=== PATIENT | male | born 1975 | race Two or more races ===

== ENCOUNTER 2021-08-18 19:23 | Inpatient (IN) | payer OTHER ==
[2021-08-18] MEDS ORDERED: BACITRACIN 15 GM TUBE TOPICAL OINTMENT TP ONE (21:56)
[2021-08-18] MEDS ORDERED: DICYCLOMINE HCL 10 MG CAPSULE PO PRN (21:57)
[2021-08-18] MEDS ORDERED: NALOXONE HCL 0.4 MG/ML VIAL IM PRN (21:57)
[2021-08-18] MEDS ORDERED: LOPERAMIDE HCL 2 MG CAPSULE PO PRN (21:57)
[2021-08-18] MEDS ORDERED: ACETAMINOPHEN 325 MG TABLET (FP) PO PRN ×2 (21:57)
[2021-08-18] MEDS ORDERED: P-EPHED 60MG/TRIPROLIDI 2.5MG TABLET PO PRN (21:57)
[2021-08-18] MEDS ORDERED: BISMUTH SUBSALICYLATE 524 MG/30 ML PO PRN (21:57)
[2021-08-18] MEDS ORDERED: MAG HYDROX/AL HYDROX/SIMETH 30 ML UNIT-DOSE CUP PO PRN (21:57)
[2021-08-18] MEDS ORDERED: ONDANSETRON *ODT* 4 MG TABLET SL PRN (21:57)
[2021-08-18] MEDS ORDERED: METHOCARBAMOL 500 MG TABLET PO PRN (21:57)
[2021-08-18] MEDS ORDERED: NALOXONE (NARCAN) HCL 4 MG/0.1 ML SPRAY NS PRN (21:57)
[2021-08-18] MEDS ORDERED: MAGNESIUM CITRATE 300 ML BOTTLE PO PRN (21:57)
[2021-08-18] MEDS ORDERED: MAGNESIUM HYDROX 2400MG/30ML ORAL SUSPENSION 30 ML CUP PO PRN (21:57)
[2021-08-18] MEDS ORDERED: MENTHOL/PHENOL 1 EACH UD MM PRN (21:57)
[2021-08-18] MEDS ORDERED: guaiFENesin 200 MG/10 ML 10 ML UNIT-DOSE CUPS PO PRN (21:57)
[2021-08-18 22:43] VITALS: BMI 14.5
[2021-08-19] MEDS: MELATONIN 5 MG TABLETS PO SCH ×2 (03:33→22:05)
[2021-08-19] MEDS: THIAMINE HCL 100 MG TABLET (FP) PO SCH ×2 (03:34→22:05)
[2021-08-19] MEDS: NICOTINE 14 MG/24 HOURS TOPICAL PATCH TD SCH (10:26)
[2021-08-19] MEDS: PRENATAL VITAMINS W/ FOLIC ACID TABLET (FP) PO SCH (10:26)
[2021-08-19 11:38] LABS: HEMATOCRIT 37.7 % (35.4-49); HEMOGLOBIN 12.1 GM/dL (11.7-16.9); MCH 27.9 pg (25.7-33.7); MEAN CELL VOLUME 87.3 fl (80-96); MEAN PLT VOLUME 7.8 fl (7.5-11.1); PLATELET COUNT 346 10^3/uL (134-434); RBC 4.32 M/mm3 (4.00-5.60); RDW 17.3 % (11.9-15.9); WHITE BLOOD COUNT 7.7 K/mm3 (4.0-10.0)
[2021-08-19 12:06] LABS: ALBUMIN 2.9 g/dl (3.4-5.0); BLOOD UREA NITROGEN 16.7 mg/dL (7-18); CALCIUM 8.7 mg/dL (8.5-10.1)
[2021-08-19 12:09] LABS: CREATININE 0.5 mg/dL (0.55-1.3)
[2021-08-19 12:10] LABS: BILIRUBIN,TOTAL 0.9 mg/dL (0.2-1)
[2021-08-19 12:11] LABS: TOT PROT 6.4 g/dl (6.4-8.2)
[2021-08-19] MEDS ORDERED: methaDONE HCL 10 MG TABLET (FOR DETOX USE ONLY) ONE (14:23)
[2021-08-19] MEDS: GABAPENTIN 300 MG CAPSULE PO SCH ×2 (14:28→22:05)
[2021-08-19] MEDS: levETIRAcetam 500 MG TABLET (FP) PO SCH ×2 (14:28→22:05)
[2021-08-19] MEDS: BACITRACIN 0.9 GM PACKET TP SCH ×2 (14:28→22:04)
[2021-08-19] MEDS: cloNIDine HCL 0.1 MG TABLET PO PRN ×2 (16:01→22:06)
[2021-08-19] MEDS: IBUPROFEN 400 MG TABLET (FP) PO PRN (18:12)
[2021-08-19] MEDS: NICOTINE 10 MG CARTRIDGE (INHALER) IH SCH (18:12)
[2021-08-19] MEDS ORDERED: risperiDONE 1 MG TABLET PO SCH (22:00)
[2021-08-19] MEDS ORDERED: QUEtiapine FUMARATE 200 MG TABLET PO SCH (22:00)
[2021-08-19] MEDS: risperiDONE 0.5 MG TABLET PO SCH (22:05)
[2021-08-20] MEDS: cloNIDine HCL 0.1 MG TABLET PO PRN ×4 (02:32→19:59)
[2021-08-20] MEDS: GABAPENTIN 300 MG CAPSULE PO SCH ×3 (06:07→22:17)
[2021-08-20] MEDS: hydrOXYzine PAMOATE 25 MG CAPSULE (FP) PO PRN ×3 (06:07→17:34)
[2021-08-20] MEDS ORDERED: methaDONE HCL 10 MG TABLET (FOR DETOX USE ONLY) PO ONE (10:00)
[2021-08-20] MEDS: BACITRACIN 0.9 GM PACKET TP SCH ×2 (10:04→22:16)
[2021-08-20] MEDS: DULoxetine HCL 20 MG CAPSULE.DR PO SCH (10:04)
[2021-08-20] MEDS: PRENATAL VITAMINS W/ FOLIC ACID TABLET (FP) PO SCH (10:04)
[2021-08-20] MEDS: risperiDONE 0.5 MG TABLET PO SCH ×2 (10:04→22:17)
[2021-08-20] MEDS: levETIRAcetam 500 MG TABLET (FP) PO SCH ×2 (10:04→22:16)
[2021-08-20] MEDS: NICOTINE 10 MG CARTRIDGE (INHALER) IH SCH (10:05)
[2021-08-20] MEDS: NICOTINE 14 MG/24 HOURS TOPICAL PATCH TD SCH (10:11)
[2021-08-20] MEDS: IBUPROFEN 400 MG TABLET (FP) PO PRN ×2 (11:37→17:34)
[2021-08-20] MEDS: NICOTINE POLACRILEX 2 MG GUM BUC PRN ×2 (17:31→22:19)
[2021-08-20] MEDS: NICOTINE 10 MG CARTRIDGE (INHALER) IH PRN (19:59)
[2021-08-20] MEDS: TOLNAFTATE 1% CREAM 15 GM TUBE TP SCH (22:16)
[2021-08-20] MEDS: MELATONIN 5 MG TABLETS PO SCH (22:17)
[2021-08-20] MEDS: THIAMINE HCL 100 MG TABLET (FP) PO SCH (22:17)
[2021-08-21] MEDS: GABAPENTIN 300 MG CAPSULE PO SCH ×3 (05:51→22:06)
[2021-08-21] MEDS: NICOTINE 10 MG CARTRIDGE (INHALER) IH PRN ×4 (05:52→22:08)
[2021-08-21] MEDS ORDERED: methaDONE HCL 10 MG TABLET (FOR DETOX USE ONLY) ONE (09:21)
[2021-08-21] MEDS: NICOTINE 14 MG/24 HOURS TOPICAL PATCH TD SCH (10:20)
[2021-08-21] MEDS: BACITRACIN 0.9 GM PACKET TP SCH ×2 (10:20→22:05)
[2021-08-21] MEDS: PRENATAL VITAMINS W/ FOLIC ACID TABLET (FP) PO SCH (10:21)
[2021-08-21] MEDS: DULoxetine HCL 20 MG CAPSULE.DR PO SCH (10:21)
[2021-08-21] MEDS: levETIRAcetam 500 MG TABLET (FP) PO SCH ×2 (10:21→22:06)
[2021-08-21] MEDS: TOLNAFTATE 1% CREAM 15 GM TUBE TP SCH ×2 (10:21→22:32)
[2021-08-21] MEDS: risperiDONE 0.5 MG TABLET PO SCH ×2 (10:21→22:06)
[2021-08-21] MEDS: cloNIDine HCL 0.1 MG TABLET PO PRN ×2 (15:16→22:07)
[2021-08-21] MEDS: hydrOXYzine PAMOATE 25 MG CAPSULE (FP) PO PRN (17:28)
[2021-08-21] MEDS: THIAMINE HCL 100 MG TABLET (FP) PO SCH (22:06)
[2021-08-21] MEDS: MELATONIN 5 MG TABLETS PO SCH (22:06)
[2021-08-22] MEDS: GABAPENTIN 300 MG CAPSULE PO SCH ×3 (05:50→22:09)
[2021-08-22] MEDS: NICOTINE 10 MG CARTRIDGE (INHALER) IH PRN ×4 (05:51→22:11)
[2021-08-22] MEDS ORDERED: methaDONE HCL 10 MG TABLET (FOR DETOX USE ONLY) PO ONE (10:00)
[2021-08-22] MEDS: levETIRAcetam 500 MG TABLET (FP) PO SCH ×2 (10:16→22:08)
[2021-08-22] MEDS: BACITRACIN 0.9 GM PACKET TP SCH ×2 (10:18→23:23)
[2021-08-22] MEDS: PRENATAL VITAMINS W/ FOLIC ACID TABLET (FP) PO SCH (10:20)
[2021-08-22] MEDS: NICOTINE 14 MG/24 HOURS TOPICAL PATCH TD SCH (10:21)
[2021-08-22] MEDS: risperiDONE 0.5 MG TABLET PO SCH ×2 (10:21→22:08)
[2021-08-22] MEDS: TOLNAFTATE 1% CREAM 15 GM TUBE TP SCH ×2 (10:21→22:09)
[2021-08-22] MEDS: cloNIDine HCL 0.1 MG TABLET PO PRN (13:26)
[2021-08-22] MEDS: hydrOXYzine PAMOATE 25 MG CAPSULE (FP) PO PRN ×2 (14:33→22:10)
[2021-08-22] MEDS: IBUPROFEN 400 MG TABLET (FP) PO PRN (18:20)
[2021-08-22] MEDS: NICOTINE POLACRILEX 2 MG GUM BUC PRN (18:20)
[2021-08-22] MEDS: THIAMINE HCL 100 MG TABLET (FP) PO SCH (22:08)
[2021-08-22] MEDS: MELATONIN 5 MG TABLETS PO SCH (22:08)
[2021-08-23] MEDS: GABAPENTIN 300 MG CAPSULE PO SCH (05:43)
[2021-08-23] MEDS: NICOTINE 10 MG CARTRIDGE (INHALER) IH PRN ×2 (05:47→09:31)
[2021-08-23] MEDS: cloNIDine HCL 0.1 MG TABLET PO PRN (05:47)
[2021-08-23] MEDS: IBUPROFEN 400 MG TABLET (FP) PO PRN (06:59)
[2021-08-23 08:32] VITALS: BP 116/77; PULSE 92; TEMP 97.7
[2021-08-23] MEDS: levETIRAcetam 500 MG TABLET (FP) PO SCH (09:28)
[2021-08-23] MEDS: risperiDONE 0.5 MG TABLET PO SCH (09:31)
[2021-08-23] MEDS: NICOTINE 14 MG/24 HOURS TOPICAL PATCH TD SCH (10:33)
[2021-08-23] MEDS: BACITRACIN 0.9 GM PACKET TP SCH (10:33)
[2021-08-23] MEDS: PRENATAL VITAMINS W/ FOLIC ACID TABLET (FP) PO SCH (10:34)
[2021-08-23] MEDS: TOLNAFTATE 1% CREAM 15 GM TUBE TP SCH (10:34)
== END 2021-08-23 10:00 | disposition home or self-care (01) | DRG 773 ==
LOC: YASAS 19:23 → Y3N 08-19 02:42
PROVIDERS: ADMIT Allergy & Immunology; ATTEND Allergy & Immunology
PROC: HZ2ZZZZ Detoxification Services for Substance Abuse Treatment (ICD-10-PCS; principal; 2021-08-19)
DX: F11.23 Opioid dependence with withdrawal (principal); F10.230 Alcohol dependence with withdrawal, uncomplicated; F14.20 Cocaine dependence, uncomplicated; F12.20 Cannabis dependence, uncomplicated; F17.210 Nicotine dependence, cigarettes, uncomplicated; F25.9 Schizoaffective disorder, unspecified; G40.909 Epilepsy, unspecified, not intractable, without status epilepticus; J45.909 Unspecified asthma, uncomplicated; K21.9 Gastro-esophageal reflux disease without esophagitis; M54.50 Low back pain, unspecified; G89.29 Other chronic pain; Z62.810 Personal history of physical and sexual abuse in childhood; Z86.19 Personal history of other infectious and parasitic diseases
CPT/HCPCS: 36415; 73630-TC-RT-FY; 80053; 85027; 86593; 86780; 87811; C9803-CS; J0735; U0003; U0005

== ENCOUNTER 2021-09-28 15:06 | Inpatient (IN) | payer OTHER ==
[2021-09-28 15:53] VITALS: BMI 18.5
[2021-09-28] MEDS ORDERED: LOPERAMIDE HCL 2 MG CAPSULE PO PRN (17:38)
[2021-09-28] MEDS ORDERED: ACETAMINOPHEN 325 MG TABLET (FP) PO PRN ×2 (17:38)
[2021-09-28] MEDS ORDERED: MAGNESIUM HYDROX 2400MG/30ML ORAL SUSPENSION 30 ML CUP PO PRN (17:38)
[2021-09-28] MEDS ORDERED: MELATONIN 5 MG TABLETS PO PRN (17:38)
[2021-09-28] MEDS ORDERED: MAGNESIUM CITRATE 300 ML BOTTLE PO PRN (17:38)
[2021-09-28] MEDS ORDERED: P-EPHED 60MG/TRIPROLIDI 2.5MG TABLET PO PRN (17:38)
[2021-09-28] MEDS ORDERED: BISMUTH SUBSALICYLATE 524 MG/30 ML PO PRN (17:38)
[2021-09-28] MEDS ORDERED: guaiFENesin 200 MG/10 ML 10 ML UNIT-DOSE CUPS PO PRN (17:38)
[2021-09-28] MEDS ORDERED: DICYCLOMINE HCL 10 MG CAPSULE PO PRN (17:38)
[2021-09-28] MEDS ORDERED: BENZOCAINE/MENTHOL (CHLORASEPTIC ) LOZENGE MM PRN (17:38)
[2021-09-28] MEDS ORDERED: methaDONE HCL 10 MG TABLET (FOR DETOX USE ONLY) PO ONE (17:40)
[2021-09-28] MEDS ORDERED: cloNIDine HCL 0.1 MG TABLET PO PRN (17:40)
[2021-09-28] MEDS ORDERED: diazePAM 5 MG TABLET PO PRN (17:40)
[2021-09-28] MEDS ORDERED: ALBUTEROL SO4 HFA INHALER IH PRN (19:51)
[2021-09-28] MEDS ORDERED: cloNIDine HCL 0.1 MG TABLET ONE (19:54)
[2021-09-28] MEDS ORDERED: methaDONE HCL 10 MG TABLET (FOR DETOX USE ONLY) ONE (19:56)
[2021-09-28] MEDS: CEPHALEXIN MONOHYDRATE 500 MG CAPSULE (UD) PO SCH (22:11)
[2021-09-28] MEDS: GABAPENTIN 300 MG CAPSULE PO SCH (22:11)
[2021-09-28] MEDS: THIAMINE HCL 100 MG TABLET (FP) PO SCH (22:11)
[2021-09-28] MEDS: BACITRACIN 0.9 GM PACKET TP SCH (22:11)
[2021-09-28] MEDS: levETIRAcetam 500 MG TABLET (FP) PO SCH (22:11)
[2021-09-28] MEDS: diazePAM 5 MG TABLET PO SCH (22:12)
[2021-09-28] MEDS: hydrOXYzine PAMOATE 25 MG CAPSULE (FP) PO PRN (22:13)
[2021-09-28] MEDS: NICOTINE 10 MG CARTRIDGE (INHALER) IH PRN (22:14)
[2021-09-29] MEDS: IBUPROFEN 400 MG TABLET (FP) PO PRN (02:51)
[2021-09-29] MEDS: METHOCARBAMOL 500 MG TABLET PO PRN (02:55)
[2021-09-29] MEDS: GABAPENTIN 300 MG CAPSULE PO SCH ×3 (06:40→23:53)
[2021-09-29] MEDS: diazePAM 5 MG TABLET PO SCH ×4 (06:42→23:54)
[2021-09-29] MEDS ORDERED: methaDONE HCL 10 MG TABLET (FOR DETOX USE ONLY) ONE (11:22)
[2021-09-29] MEDS: BACITRACIN 0.9 GM PACKET TP SCH ×2 (11:35→23:53)
[2021-09-29] MEDS: CEPHALEXIN MONOHYDRATE 500 MG CAPSULE (UD) PO SCH ×4 (11:35→23:53)
[2021-09-29] MEDS: PRENATAL VITAMINS W/ FOLIC ACID TABLET (FP) PO SCH (11:35)
[2021-09-29] MEDS: levETIRAcetam 500 MG TABLET (FP) PO SCH ×2 (11:35→23:53)
[2021-09-29] MEDS: NICOTINE 10 MG CARTRIDGE (INHALER) IH PRN ×2 (12:37→19:14)
[2021-09-29 12:43] LABS: HEMATOCRIT 37.7 % (35.4-49); HEMOGLOBIN 12.2 GM/dL (11.7-16.9); MCH 28.7 pg (25.7-33.7); MCHC 32.4 g/dl (32.0-35.9); MEAN CELL VOLUME 88.6 fl (80-96); MEAN PLT VOLUME 7.8 fl (7.5-11.1); PLATELET COUNT 418 10^3/uL (134-434); RBC 4.25 M/mm3 (4.00-5.60)
[2021-09-29 12:50] LABS: ALBUMIN 2.8 g/dl (3.4-5.0); BLOOD UREA NITROGEN 9.6 mg/dL (7-18)
[2021-09-29 12:51] LABS: CREATININE 0.6 mg/dL (0.55-1.3)
[2021-09-29 12:54] LABS: BILIRUBIN,TOTAL 0.3 mg/dL (0.2-1); TOT PROT 7.2 g/dl (6.4-8.2)
[2021-09-29] MEDS: risperiDONE 1 MG TABLET PO SCH (14:10)
[2021-09-29] MEDS: THIAMINE HCL 100 MG TABLET (FP) PO SCH (23:54)
[2021-09-30] MEDS: IBUPROFEN 400 MG TABLET (FP) PO PRN (04:40)
[2021-09-30] MEDS: METHOCARBAMOL 500 MG TABLET PO PRN (04:41)
[2021-09-30] MEDS: NICOTINE 10 MG CARTRIDGE (INHALER) IH PRN ×3 (04:42→22:35)
[2021-09-30] MEDS: GABAPENTIN 300 MG CAPSULE PO SCH ×3 (06:57→22:29)
[2021-09-30] MEDS: diazePAM 5 MG TABLET PO SCH ×3 (06:57→22:29)
[2021-09-30] MEDS ORDERED: methaDONE HCL 10 MG TABLET (FOR DETOX USE ONLY) PO ONE (10:00)
[2021-09-30 10:07] LABS: SARS-CoV-2 NAA Not Detected (Not Detected)
[2021-09-30] MEDS: CEPHALEXIN MONOHYDRATE 500 MG CAPSULE (UD) PO SCH ×4 (10:24→22:28)
[2021-09-30] MEDS: risperiDONE 1 MG TABLET PO SCH (10:24)
[2021-09-30] MEDS: BACITRACIN 0.9 GM PACKET TP SCH ×2 (10:24→22:31)
[2021-09-30] MEDS: levETIRAcetam 500 MG TABLET (FP) PO SCH ×2 (10:25→22:28)
[2021-09-30] MEDS: PRENATAL VITAMINS W/ FOLIC ACID TABLET (FP) PO SCH (10:28)
[2021-09-30] MEDS ORDERED: BENZOCAINE 20 % GEL TUBE MM PRN (15:28)
[2021-09-30] MEDS: MAG HYDROX/AL HYDROX/SIMETH 30 ML UNIT-DOSE CUP PO PRN (17:51)
[2021-09-30] MEDS: THIAMINE HCL 100 MG TABLET (FP) PO SCH (22:29)
[2021-09-30] MEDS: hydrOXYzine PAMOATE 25 MG CAPSULE (FP) PO PRN (22:30)
[2021-10-01] MEDS: NICOTINE 10 MG CARTRIDGE (INHALER) IH PRN ×3 (02:49→22:48)
[2021-10-01] MEDS: IBUPROFEN 400 MG TABLET (FP) PO PRN ×2 (02:49→09:52)
[2021-10-01] MEDS: METHOCARBAMOL 500 MG TABLET PO PRN ×2 (02:50→09:52)
[2021-10-01] MEDS: GABAPENTIN 300 MG CAPSULE PO SCH ×3 (05:43→22:21)
[2021-10-01] MEDS: diazePAM 5 MG TABLET PO SCH ×2 (05:43→18:07)
[2021-10-01] MEDS: hydrOXYzine PAMOATE 25 MG CAPSULE (FP) PO PRN ×2 (05:45→09:51)
[2021-10-01] MEDS ORDERED: methaDONE HCL 10 MG TABLET (FOR DETOX USE ONLY) ONE (09:18)
[2021-10-01] MEDS: risperiDONE 1 MG TABLET PO SCH (09:52)
[2021-10-01] MEDS: CEPHALEXIN MONOHYDRATE 500 MG CAPSULE (UD) PO SCH ×4 (09:52→22:22)
[2021-10-01] MEDS: levETIRAcetam 500 MG TABLET (FP) PO SCH ×2 (09:52→22:21)
[2021-10-01] MEDS: BACITRACIN 0.9 GM PACKET TP SCH ×2 (09:54→22:21)
[2021-10-01] MEDS: PRENATAL VITAMINS W/ FOLIC ACID TABLET (FP) PO SCH (09:54)
[2021-10-01] MEDS: THIAMINE HCL 100 MG TABLET (FP) PO SCH (22:22)
[2021-10-02] MEDS: METHOCARBAMOL 500 MG TABLET PO PRN ×2 (04:17→23:23)
[2021-10-02] MEDS: IBUPROFEN 400 MG TABLET (FP) PO PRN ×2 (04:17→17:47)
[2021-10-02] MEDS: GABAPENTIN 300 MG CAPSULE PO SCH ×3 (05:22→23:22)
[2021-10-02] MEDS ORDERED: diazePAM 5 MG TABLET PO ONE (06:00)
[2021-10-02] MEDS ORDERED: methaDONE HCL 10 MG TABLET (FOR DETOX USE ONLY) PO ONE (10:00)
[2021-10-02] MEDS: risperiDONE 1 MG TABLET PO SCH (10:06)
[2021-10-02] MEDS: BACITRACIN 0.9 GM PACKET TP SCH ×2 (10:06→23:21)
[2021-10-02] MEDS: PRENATAL VITAMINS W/ FOLIC ACID TABLET (FP) PO SCH (10:06)
[2021-10-02] MEDS: CEPHALEXIN MONOHYDRATE 500 MG CAPSULE (UD) PO SCH ×4 (10:07→23:22)
[2021-10-02] MEDS: levETIRAcetam 500 MG TABLET (FP) PO SCH ×2 (10:07→23:23)
[2021-10-02] MEDS: MAG HYDROX/AL HYDROX/SIMETH 30 ML UNIT-DOSE CUP PO PRN ×2 (10:10→18:42)
[2021-10-02] MEDS: ONDANSETRON *ODT* 4 MG TABLET SL PRN ×2 (16:01→20:52)
[2021-10-02] MEDS: NICOTINE 10 MG CARTRIDGE (INHALER) IH PRN (17:48)
[2021-10-02] MEDS: THIAMINE HCL 100 MG TABLET (FP) PO SCH (23:23)
[2021-10-03] MEDS: NICOTINE 10 MG CARTRIDGE (INHALER) IH PRN (03:45)
[2021-10-03] MEDS: METHOCARBAMOL 500 MG TABLET PO PRN (05:42)
[2021-10-03] MEDS: IBUPROFEN 400 MG TABLET (FP) PO PRN (05:42)
[2021-10-03] MEDS: GABAPENTIN 300 MG CAPSULE PO SCH (05:45)
[2021-10-03 07:24] VITALS: BP 121/70; PULSE 91; TEMP 97.1
[2021-10-03] MEDS: BACITRACIN 0.9 GM PACKET TP SCH (09:47)
[2021-10-03] MEDS: PRENATAL VITAMINS W/ FOLIC ACID TABLET (FP) PO SCH (09:47)
[2021-10-03] MEDS: risperiDONE 1 MG TABLET PO SCH (09:47)
[2021-10-03] MEDS: levETIRAcetam 500 MG TABLET (FP) PO SCH (09:47)
[2021-10-03] MEDS: CEPHALEXIN MONOHYDRATE 500 MG CAPSULE (UD) PO SCH (09:47)
== END 2021-10-03 11:05 | disposition home or self-care (01) | DRG 773 ==
LOC: YASAS 15:06 → Y3N 19:38
PROVIDERS: ADMIT Allergy & Immunology; ATTEND Allergy & Immunology
PROC: HZ2ZZZZ Detoxification Services for Substance Abuse Treatment (ICD-10-PCS; principal; 2021-09-28)
DX: F11.23 Opioid dependence with withdrawal (principal); F10.230 Alcohol dependence with withdrawal, uncomplicated; F14.20 Cocaine dependence, uncomplicated; F17.210 Nicotine dependence, cigarettes, uncomplicated; F25.9 Schizoaffective disorder, unspecified; R56.1 Post traumatic seizures; K21.9 Gastro-esophageal reflux disease without esophagitis; L97.511 Non-pressure chronic ulcer of other part of right foot limited to breakdown of skin; Z62.810 Personal history of physical and sexual abuse in childhood; R63.4 Abnormal weight loss; Z68.1 Body mass index [BMI] 19.9 or less, adult; Z99.89 Dependence on other enabling machines and devices; Z89.411 Acquired absence of right great toe; Z89.421 Acquired absence of other right toe(s)
CPT/HCPCS: 36415; 80053; 85027; 86593; 86780; C9803-CS; J0735; J2794; Q0162; U0003; U0005

== ENCOUNTER 2022-08-05 09:32 | Inpatient (IN) | payer OTHER ==
[2022-08-05 11:24] VITALS: BMI 19.8
[2022-08-05] MEDS ORDERED: POLYETHYLENE GLYCOL (HEALTHYLAX) 3350 17 GM PACKET PO PRN (12:09)
[2022-08-05] MEDS ORDERED: LOPERAMIDE HCL 2 MG CAPSULE PO PRN (12:09)
[2022-08-05] MEDS ORDERED: MAG HYDROX/AL HYDROX/SIMETH 30 ML UNIT-DOSE CUP PO PRN (12:09)
[2022-08-05] MEDS ORDERED: hydrOXYzine PAMOATE 25 MG CAPSULE (FP) PO PRN (12:09)
[2022-08-05] MEDS ORDERED: BENZOCAINE/MENTHOL (CHLORASEPTIC ) LOZENGE MM PRN (12:09)
[2022-08-05] MEDS ORDERED: ACETAMINOPHEN 325 MG TABLET (FP) PO PRN (12:09)
[2022-08-05] MEDS ORDERED: guaiFENesin 200 MG/10 ML 10 ML UNIT-DOSE CUPS PO PRN (12:09)
[2022-08-05] MEDS ORDERED: MAGNESIUM HYDROX 2400MG/30ML ORAL SUSPENSION 30 ML CUP PO PRN (12:09)
[2022-08-05] MEDS ORDERED: TUBERCULIN PPD 5 TU/0.1ML VIAL ID ONE (16:22)
[2022-08-05] MEDS: ATORVASTATIN CA 20 MG TABLET (FP) PO SCH ×2 (16:25→21:11)
[2022-08-05] MEDS: PRENATAL VITAMINS W/ FOLIC ACID TABLET (FP) PO SCH (16:25)
[2022-08-05] MEDS: NICOTINE 10 MG CARTRIDGE (INHALER) IH PRN (16:26)
[2022-08-05] MEDS: levETIRAcetam 500 MG TABLET (FP) PO SCH (21:11)
[2022-08-05] MEDS: BUPRENORPHINE/NALOXONE 8 MG/2 MG FILM PACKET SL SCH (21:11)
[2022-08-05] MEDS: SENNOSIDES 8.6MG TABLET (FP) PO SCH (21:11)
[2022-08-05] MEDS: THIAMINE HCL 100 MG TABLET (FP) PO SCH (21:11)
[2022-08-05] MEDS: MELATONIN 5 MG TABLETS PO SCH (21:12)
[2022-08-05] MEDS: MOMETASONE FUROATE 220 MCG/IH INHALER IH SCH (21:12)
[2022-08-05] MEDS ORDERED: PATIENT'S OWN MEDICATION (NON-FORMULARY) (Fluticasone Propionate [Flovent Diskus] 50 MCG B IH SCH (22:00)
[2022-08-06] MEDS: NICOTINE 10 MG CARTRIDGE (INHALER) IH PRN ×5 (00:15→19:02)
[2022-08-06] MEDS: PRENATAL VITAMINS W/ FOLIC ACID TABLET (FP) PO SCH (09:43)
[2022-08-06] MEDS: levETIRAcetam 500 MG TABLET (FP) PO SCH ×2 (09:44→21:13)
[2022-08-06] MEDS: MOMETASONE FUROATE 220 MCG/IH INHALER IH SCH ×2 (09:44→21:44)
[2022-08-06] MEDS: FERROUS SO4 325 MG TABLET (FP) PO SCH (09:44)
[2022-08-06] MEDS: PANTOPRAZOLE 40 MG TABLET PO SCH (09:44)
[2022-08-06] MEDS: BUPRENORPHINE/NALOXONE 8 MG/2 MG FILM PACKET SL SCH ×2 (09:44→21:13)
[2022-08-06] MEDS ORDERED: CITALOPRAM HYDROBROMIDE 10 MG TABLET PO SCH (10:00)
[2022-08-06] MEDS ORDERED: POLYETHYLENE GLYCOL 1 GM PO SCH (10:00)
[2022-08-06 11:12] LABS: HEMATOCRIT 39.1 % (35.4-49); HEMOGLOBIN 12.5 GM/dL (11.7-16.9); MCH 27.6 pg (25.7-33.7); MEAN CELL VOLUME 86.3 fl (80-96); MEAN PLT VOLUME 8.8 fl (7.5-11.1); PLATELET COUNT 274 10^3/uL (134-434); RBC 4.54 M/mm3 (4.00-5.60); RDW 18.5 % (11.9-15.9); WHITE BLOOD COUNT 5.9 K/mm3 (4.0-10.0)
[2022-08-06 11:31] LABS: ALBUMIN 3.2 g/dl (3.4-5.0); CALCIUM 9.1 mg/dL (8.5-10.1)
[2022-08-06 11:32] LABS: BLOOD UREA NITROGEN 9.3 mg/dL (7-18)
[2022-08-06] MEDS ORDERED: QUEtiapine FUMARATE 25 MG TABLET PO PRN (11:33)
[2022-08-06 11:34] LABS: CREATININE 0.5 mg/dL (0.55-1.3)
[2022-08-06 11:36] LABS: BILIRUBIN,TOTAL 0.6 mg/dL (0.2-1); TOT PROT 7.1 g/dl (6.4-8.2)
[2022-08-06 12:10] LABS: SYPHILIS W/ RPR CONF REACTIVE (NONREACTIVE)
[2022-08-06] MEDS ORDERED: LACTULOSE 20 GM/30 ML UDC (FOR ORAL USE ONLY) PO PRN (14:04)
[2022-08-06] MEDS: ATORVASTATIN CA 20 MG TABLET (FP) PO SCH (21:13)
[2022-08-06] MEDS: THIAMINE HCL 100 MG TABLET (FP) PO SCH (21:13)
[2022-08-06] MEDS: SENNOSIDES 8.6MG TABLET (FP) PO SCH (21:14)
[2022-08-06] MEDS: LACTULOSE 20 GM/30 ML UDC (FOR ORAL USE ONLY) PO SCH (21:42)
[2022-08-06] MEDS: risperiDONE 0.5 MG TABLET PO SCH (21:42)
[2022-08-06] MEDS: MELATONIN 5 MG TABLETS PO SCH (21:45)
[2022-08-06 23:27] LABS: PH,URINE 7.5 (5.0-8.0); URINE APPEARANCE CLEAR; URINE BILIRUBIN NEGATIVE (NEGATIVE); URINE COLOR DK YELLOW; URINE GLUCOSE (UA) NEGATIVE (NEGATIVE); URINE KETONE TRACE (NEGATIVE); URINE LEUK ESTERASE NEGATIVE (NEGATIVE); URINE NITRITE NEGATIVE (NEGATIVE); URINE PROTEIN TRACE (NEGATIVE)
[2022-08-07] MEDS: NICOTINE 10 MG CARTRIDGE (INHALER) IH PRN ×5 (04:20→21:20)
[2022-08-07] MEDS: LACTULOSE 20 GM/30 ML UDC (FOR ORAL USE ONLY) PO SCH ×3 (06:47→21:18)
[2022-08-07] MEDS: BUPRENORPHINE/NALOXONE 8 MG/2 MG FILM PACKET SL SCH ×2 (09:40→21:18)
[2022-08-07] MEDS: FERROUS SO4 325 MG TABLET (FP) PO SCH (09:40)
[2022-08-07] MEDS: PRENATAL VITAMINS W/ FOLIC ACID TABLET (FP) PO SCH (09:40)
[2022-08-07] MEDS: MOMETASONE FUROATE 220 MCG/IH INHALER IH SCH ×2 (09:40→21:31)
[2022-08-07] MEDS: levETIRAcetam 500 MG TABLET (FP) PO SCH ×2 (09:41→21:18)
[2022-08-07] MEDS: PANTOPRAZOLE 40 MG TABLET PO SCH (09:41)
[2022-08-07] MEDS: risperiDONE 0.5 MG TABLET PO SCH ×2 (09:43→21:18)
[2022-08-07] MEDS: THIAMINE HCL 100 MG TABLET (FP) PO SCH (21:18)
[2022-08-07] MEDS: ATORVASTATIN CA 20 MG TABLET (FP) PO SCH (21:18)
[2022-08-07] MEDS: MELATONIN 5 MG TABLETS PO SCH (21:18)
[2022-08-07] MEDS: SENNOSIDES 8.6MG TABLET (FP) PO SCH (21:18)
[2022-08-07] MEDS: P-EPHED 60MG/TRIPROLIDI 2.5MG TABLET PO PRN (23:37)
[2022-08-08] MEDS: NICOTINE 10 MG CARTRIDGE (INHALER) IH PRN ×6 (02:22→22:11)
[2022-08-08] MEDS: LACTULOSE 20 GM/30 ML UDC (FOR ORAL USE ONLY) PO SCH ×3 (06:30→21:22)
[2022-08-08] MEDS: PRENATAL VITAMINS W/ FOLIC ACID TABLET (FP) PO SCH (09:40)
[2022-08-08] MEDS: MOMETASONE FUROATE 220 MCG/IH INHALER IH SCH ×2 (09:40→21:23)
[2022-08-08] MEDS: PANTOPRAZOLE 40 MG TABLET PO SCH (09:41)
[2022-08-08] MEDS: levETIRAcetam 500 MG TABLET (FP) PO SCH ×2 (09:41→21:22)
[2022-08-08] MEDS: FERROUS SO4 325 MG TABLET (FP) PO SCH (09:41)
[2022-08-08] MEDS: BUPRENORPHINE/NALOXONE 8 MG/2 MG FILM PACKET SL SCH ×2 (09:41→21:22)
[2022-08-08] MEDS: risperiDONE 0.5 MG TABLET PO SCH ×2 (09:42→21:22)
[2022-08-08] MEDS: MELATONIN 5 MG TABLETS PO SCH (21:21)
[2022-08-08] MEDS: THIAMINE HCL 100 MG TABLET (FP) PO SCH (21:22)
[2022-08-08] MEDS: ATORVASTATIN CA 20 MG TABLET (FP) PO SCH (21:22)
[2022-08-08] MEDS: SENNOSIDES 8.6MG TABLET (FP) PO SCH (21:22)
[2022-08-09] MEDS: NICOTINE 10 MG CARTRIDGE (INHALER) IH PRN ×6 (02:15→21:35)
[2022-08-09] MEDS: LACTULOSE 20 GM/30 ML UDC (FOR ORAL USE ONLY) PO SCH ×3 (06:20→21:29)
[2022-08-09] MEDS: FERROUS SO4 325 MG TABLET (FP) PO SCH (09:38)
[2022-08-09] MEDS: PRENATAL VITAMINS W/ FOLIC ACID TABLET (FP) PO SCH (09:38)
[2022-08-09] MEDS: risperiDONE 0.5 MG TABLET PO SCH ×2 (09:38→21:31)
[2022-08-09] MEDS: levETIRAcetam 500 MG TABLET (FP) PO SCH ×2 (09:38→21:30)
[2022-08-09] MEDS: BUPRENORPHINE/NALOXONE 8 MG/2 MG FILM PACKET SL SCH ×2 (09:38→21:29)
[2022-08-09] MEDS: PANTOPRAZOLE 40 MG TABLET PO SCH (09:38)
[2022-08-09] MEDS: MOMETASONE FUROATE 220 MCG/IH INHALER IH SCH ×2 (09:40→21:31)
[2022-08-09] MEDS: GABAPENTIN 300 MG CAPSULE PO SCH ×2 (13:45→21:30)
[2022-08-09] MEDS: IBUPROFEN 400 MG TABLET (FP) PO PRN (13:46)
[2022-08-09] MEDS: THIAMINE HCL 100 MG TABLET (FP) PO SCH (21:29)
[2022-08-09] MEDS: MELATONIN 5 MG TABLETS PO SCH (21:30)
[2022-08-09] MEDS: ATORVASTATIN CA 20 MG TABLET (FP) PO SCH (21:30)
[2022-08-09] MEDS: SENNOSIDES 8.6MG TABLET (FP) PO SCH (21:31)
[2022-08-10] MEDS: GABAPENTIN 300 MG CAPSULE PO SCH ×3 (06:21→21:12)
[2022-08-10] MEDS: LACTULOSE 20 GM/30 ML UDC (FOR ORAL USE ONLY) PO SCH ×3 (06:21→21:11)
[2022-08-10] MEDS: NICOTINE 10 MG CARTRIDGE (INHALER) IH PRN ×3 (06:22→16:43)
[2022-08-10] MEDS: MOMETASONE FUROATE 220 MCG/IH INHALER IH SCH ×2 (09:40→21:14)
[2022-08-10] MEDS: PRENATAL VITAMINS W/ FOLIC ACID TABLET (FP) PO SCH (09:40)
[2022-08-10] MEDS: levETIRAcetam 500 MG TABLET (FP) PO SCH ×2 (09:41→21:12)
[2022-08-10] MEDS: PANTOPRAZOLE 40 MG TABLET PO SCH (09:41)
[2022-08-10] MEDS: BUPRENORPHINE/NALOXONE 8 MG/2 MG FILM PACKET SL SCH ×2 (09:41→21:13)
[2022-08-10] MEDS: risperiDONE 0.5 MG TABLET PO SCH ×2 (09:41→21:12)
[2022-08-10] MEDS: FERROUS SO4 325 MG TABLET (FP) PO SCH (09:41)
[2022-08-10] MEDS: THIAMINE HCL 100 MG TABLET (FP) PO SCH (21:11)
[2022-08-10] MEDS: MELATONIN 5 MG TABLETS PO SCH (21:11)
[2022-08-10] MEDS: ATORVASTATIN CA 20 MG TABLET (FP) PO SCH (21:12)
[2022-08-10] MEDS: QUEtiapine FUMARATE 25 MG TABLET PO PRN (21:12)
[2022-08-10] MEDS: SENNOSIDES 8.6MG TABLET (FP) PO SCH (21:12)
[2022-08-11] MEDS: NICOTINE 10 MG CARTRIDGE (INHALER) IH PRN ×6 (00:23→21:18)
[2022-08-11] MEDS: P-EPHED 60MG/TRIPROLIDI 2.5MG TABLET PO PRN ×2 (01:08→22:36)
[2022-08-11] MEDS: LACTULOSE 20 GM/30 ML UDC (FOR ORAL USE ONLY) PO SCH ×3 (06:01→21:16)
[2022-08-11] MEDS: IBUPROFEN 400 MG TABLET (FP) PO PRN ×2 (06:01→21:16)
[2022-08-11] MEDS: GABAPENTIN 300 MG CAPSULE PO SCH ×3 (06:02→21:16)
[2022-08-11] MEDS: levETIRAcetam 500 MG TABLET (FP) PO SCH ×2 (09:47→21:16)
[2022-08-11] MEDS: FERROUS SO4 325 MG TABLET (FP) PO SCH (09:47)
[2022-08-11] MEDS: risperiDONE 0.5 MG TABLET PO SCH ×2 (09:47→21:16)
[2022-08-11] MEDS: MOMETASONE FUROATE 220 MCG/IH INHALER IH SCH ×2 (09:47→21:26)
[2022-08-11] MEDS: PANTOPRAZOLE 40 MG TABLET PO SCH (09:47)
[2022-08-11] MEDS: PRENATAL VITAMINS W/ FOLIC ACID TABLET (FP) PO SCH (09:48)
[2022-08-11] MEDS: BUPRENORPHINE/NALOXONE 8 MG/2 MG FILM PACKET SL SCH ×2 (09:48→21:16)
[2022-08-11] MEDS: MELATONIN 5 MG TABLETS PO SCH (21:16)
[2022-08-11] MEDS: ATORVASTATIN CA 20 MG TABLET (FP) PO SCH (21:16)
[2022-08-11] MEDS: SENNOSIDES 8.6MG TABLET (FP) PO SCH (21:16)
[2022-08-11] MEDS: THIAMINE HCL 100 MG TABLET (FP) PO SCH (21:16)
[2022-08-12] MEDS: NICOTINE 10 MG CARTRIDGE (INHALER) IH PRN ×6 (01:34→22:24)
[2022-08-12] MEDS: GABAPENTIN 300 MG CAPSULE PO SCH ×3 (06:12→21:14)
[2022-08-12] MEDS: LACTULOSE 20 GM/30 ML UDC (FOR ORAL USE ONLY) PO SCH ×3 (06:12→21:15)
[2022-08-12] MEDS: BUPRENORPHINE/NALOXONE 8 MG/2 MG FILM PACKET SL SCH ×2 (09:49→21:14)
[2022-08-12] MEDS: PRENATAL VITAMINS W/ FOLIC ACID TABLET (FP) PO SCH (09:49)
[2022-08-12] MEDS: levETIRAcetam 500 MG TABLET (FP) PO SCH ×2 (09:49→21:14)
[2022-08-12] MEDS: FERROUS SO4 325 MG TABLET (FP) PO SCH (09:49)
[2022-08-12] MEDS: MOMETASONE FUROATE 220 MCG/IH INHALER IH SCH ×2 (09:50→21:47)
[2022-08-12] MEDS: PANTOPRAZOLE 40 MG TABLET PO SCH (09:50)
[2022-08-12] MEDS: risperiDONE 0.5 MG TABLET PO SCH ×2 (09:50→21:14)
[2022-08-12] MEDS: VITAMINS A AND D TOPICAL OINTMENT 60 GM TUBE TP SCH (14:38)
[2022-08-12] MEDS: P-EPHED 60MG/TRIPROLIDI 2.5MG TABLET PO PRN ×2 (19:40→21:15)
[2022-08-12] MEDS: ATORVASTATIN CA 20 MG TABLET (FP) PO SCH (21:14)
[2022-08-12] MEDS: THIAMINE HCL 100 MG TABLET (FP) PO SCH (21:14)
[2022-08-12] MEDS: SENNOSIDES 8.6MG TABLET (FP) PO SCH (21:14)
[2022-08-12] MEDS: MELATONIN 5 MG TABLETS PO SCH (21:47)
[2022-08-13] MEDS: P-EPHED 60MG/TRIPROLIDI 2.5MG TABLET PO PRN ×2 (02:31→21:06)
[2022-08-13] MEDS: NICOTINE 10 MG CARTRIDGE (INHALER) IH PRN ×6 (02:32→23:26)
[2022-08-13] MEDS: LACTULOSE 20 GM/30 ML UDC (FOR ORAL USE ONLY) PO SCH ×3 (06:41→21:03)
[2022-08-13] MEDS: GABAPENTIN 300 MG CAPSULE PO SCH ×3 (06:41→21:04)
[2022-08-13] MEDS: PRENATAL VITAMINS W/ FOLIC ACID TABLET (FP) PO SCH (09:47)
[2022-08-13] MEDS: levETIRAcetam 500 MG TABLET (FP) PO SCH ×2 (09:47→21:04)
[2022-08-13] MEDS: BUPRENORPHINE/NALOXONE 8 MG/2 MG FILM PACKET SL SCH ×2 (09:47→21:04)
[2022-08-13] MEDS: PANTOPRAZOLE 40 MG TABLET PO SCH (09:47)
[2022-08-13] MEDS: FERROUS SO4 325 MG TABLET (FP) PO SCH (09:47)
[2022-08-13] MEDS: VITAMINS A AND D TOPICAL OINTMENT 60 GM TUBE TP SCH (09:48)
[2022-08-13] MEDS: risperiDONE 0.5 MG TABLET PO SCH ×2 (09:48→21:05)
[2022-08-13] MEDS: MOMETASONE FUROATE 220 MCG/IH INHALER IH SCH ×2 (09:48→21:03)
[2022-08-13] MEDS: MELATONIN 5 MG TABLETS PO SCH (21:04)
[2022-08-13] MEDS: ATORVASTATIN CA 20 MG TABLET (FP) PO SCH (21:04)
[2022-08-13] MEDS: THIAMINE HCL 100 MG TABLET (FP) PO SCH (21:04)
[2022-08-13] MEDS: SENNOSIDES 8.6MG TABLET (FP) PO SCH (21:04)
[2022-08-14] MEDS: NICOTINE 10 MG CARTRIDGE (INHALER) IH PRN ×5 (03:56→19:28)
[2022-08-14] MEDS: LACTULOSE 20 GM/30 ML UDC (FOR ORAL USE ONLY) PO SCH ×3 (07:08→21:26)
[2022-08-14] MEDS: GABAPENTIN 300 MG CAPSULE PO SCH ×3 (07:08→21:27)
[2022-08-14] MEDS: BUPRENORPHINE/NALOXONE 8 MG/2 MG FILM PACKET SL SCH ×2 (09:53→21:29)
[2022-08-14] MEDS: MOMETASONE FUROATE 220 MCG/IH INHALER IH SCH ×2 (09:53→21:29)
[2022-08-14] MEDS: PANTOPRAZOLE 40 MG TABLET PO SCH (09:53)
[2022-08-14] MEDS: FERROUS SO4 325 MG TABLET (FP) PO SCH (09:53)
[2022-08-14] MEDS: levETIRAcetam 500 MG TABLET (FP) PO SCH ×2 (09:53→21:27)
[2022-08-14] MEDS: PRENATAL VITAMINS W/ FOLIC ACID TABLET (FP) PO SCH (09:53)
[2022-08-14] MEDS: VITAMINS A AND D TOPICAL OINTMENT 60 GM TUBE TP SCH (09:54)
[2022-08-14] MEDS: risperiDONE 0.5 MG TABLET PO SCH ×2 (09:56→21:28)
[2022-08-14] MEDS: SENNOSIDES 8.6MG TABLET (FP) PO SCH (21:27)
[2022-08-14] MEDS: THIAMINE HCL 100 MG TABLET (FP) PO SCH (21:27)
[2022-08-14] MEDS: ATORVASTATIN CA 20 MG TABLET (FP) PO SCH (21:27)
[2022-08-14] MEDS: MELATONIN 5 MG TABLETS PO SCH (21:28)
[2022-08-15] MEDS: NICOTINE 10 MG CARTRIDGE (INHALER) IH PRN ×6 (00:01→21:19)
[2022-08-15] MEDS: P-EPHED 60MG/TRIPROLIDI 2.5MG TABLET PO PRN (01:59)
[2022-08-15] MEDS: GABAPENTIN 300 MG CAPSULE PO SCH ×3 (06:13→21:18)
[2022-08-15] MEDS: LACTULOSE 20 GM/30 ML UDC (FOR ORAL USE ONLY) PO SCH ×3 (06:13→21:18)
[2022-08-15] MEDS: PRENATAL VITAMINS W/ FOLIC ACID TABLET (FP) PO SCH (09:51)
[2022-08-15] MEDS: levETIRAcetam 500 MG TABLET (FP) PO SCH ×2 (09:51→21:18)
[2022-08-15] MEDS: risperiDONE 0.5 MG TABLET PO SCH ×2 (09:51→21:18)
[2022-08-15] MEDS: FERROUS SO4 325 MG TABLET (FP) PO SCH (09:51)
[2022-08-15] MEDS: PANTOPRAZOLE 40 MG TABLET PO SCH (09:51)
[2022-08-15] MEDS: MOMETASONE FUROATE 220 MCG/IH INHALER IH SCH ×2 (09:52→21:19)
[2022-08-15] MEDS: BUPRENORPHINE/NALOXONE 8 MG/2 MG FILM PACKET SL SCH ×2 (09:52→21:17)
[2022-08-15] MEDS: VITAMINS A AND D TOPICAL OINTMENT 60 GM TUBE TP SCH (09:53)
[2022-08-15] MEDS: THIAMINE HCL 100 MG TABLET (FP) PO SCH (21:17)
[2022-08-15] MEDS: SENNOSIDES 8.6MG TABLET (FP) PO SCH (21:18)
[2022-08-15] MEDS: ATORVASTATIN CA 20 MG TABLET (FP) PO SCH (21:18)
[2022-08-15] MEDS: MELATONIN 5 MG TABLETS PO SCH (21:18)
[2022-08-16] MEDS: NICOTINE 10 MG CARTRIDGE (INHALER) IH PRN ×6 (01:19→23:52)
[2022-08-16] MEDS: P-EPHED 60MG/TRIPROLIDI 2.5MG TABLET PO PRN ×2 (01:19→11:28)
[2022-08-16] MEDS: LACTULOSE 20 GM/30 ML UDC (FOR ORAL USE ONLY) PO SCH ×3 (06:50→21:29)
[2022-08-16] MEDS: GABAPENTIN 300 MG CAPSULE PO SCH ×3 (06:50→21:28)
[2022-08-16] MEDS: levETIRAcetam 500 MG TABLET (FP) PO SCH ×2 (09:50→21:29)
[2022-08-16] MEDS: MOMETASONE FUROATE 220 MCG/IH INHALER IH SCH ×2 (09:50→21:34)
[2022-08-16] MEDS: BUPRENORPHINE/NALOXONE 8 MG/2 MG FILM PACKET SL SCH ×2 (09:50→21:29)
[2022-08-16] MEDS: risperiDONE 0.5 MG TABLET PO SCH ×2 (09:51→21:29)
[2022-08-16] MEDS: PANTOPRAZOLE 40 MG TABLET PO SCH (09:51)
[2022-08-16] MEDS: FERROUS SO4 325 MG TABLET (FP) PO SCH (09:51)
[2022-08-16] MEDS: VITAMINS A AND D TOPICAL OINTMENT 60 GM TUBE TP SCH (09:51)
[2022-08-16] MEDS: PRENATAL VITAMINS W/ FOLIC ACID TABLET (FP) PO SCH (09:51)
[2022-08-16] MEDS: MELATONIN 5 MG TABLETS PO SCH (21:28)
[2022-08-16] MEDS: SENNOSIDES 8.6MG TABLET (FP) PO SCH (21:28)
[2022-08-16] MEDS: THIAMINE HCL 100 MG TABLET (FP) PO SCH (21:29)
[2022-08-16] MEDS: ATORVASTATIN CA 20 MG TABLET (FP) PO SCH (21:29)
[2022-08-17] MEDS: NICOTINE 10 MG CARTRIDGE (INHALER) IH PRN ×5 (04:12→21:30)
[2022-08-17] MEDS: GABAPENTIN 300 MG CAPSULE PO SCH ×3 (05:58→21:30)
[2022-08-17] MEDS: LACTULOSE 20 GM/30 ML UDC (FOR ORAL USE ONLY) PO SCH ×3 (05:58→21:31)
[2022-08-17] MEDS: PRENATAL VITAMINS W/ FOLIC ACID TABLET (FP) PO SCH (10:05)
[2022-08-17] MEDS: BUPRENORPHINE/NALOXONE 8 MG/2 MG FILM PACKET SL SCH ×2 (10:06→21:30)
[2022-08-17] MEDS: PANTOPRAZOLE 40 MG TABLET PO SCH (10:06)
[2022-08-17] MEDS: levETIRAcetam 500 MG TABLET (FP) PO SCH ×2 (10:06→21:30)
[2022-08-17] MEDS: FERROUS SO4 325 MG TABLET (FP) PO SCH (10:06)
[2022-08-17] MEDS: MOMETASONE FUROATE 220 MCG/IH INHALER IH SCH ×2 (10:06→21:38)
[2022-08-17] MEDS: VITAMINS A AND D TOPICAL OINTMENT 60 GM TUBE TP SCH (10:07)
[2022-08-17] MEDS: risperiDONE 0.5 MG TABLET PO SCH ×2 (10:07→21:32)
[2022-08-17] MEDS: MELATONIN 5 MG TABLETS PO SCH (21:30)
[2022-08-17] MEDS: THIAMINE HCL 100 MG TABLET (FP) PO SCH (21:30)
[2022-08-17] MEDS: ATORVASTATIN CA 20 MG TABLET (FP) PO SCH (21:30)
[2022-08-17] MEDS: SODIUM CHLORIDE NASAL SPRAY 44 ML BOTTLE NS PRN (21:30)
[2022-08-17] MEDS: SENNOSIDES 8.6MG TABLET (FP) PO SCH (21:32)
[2022-08-18] MEDS: NICOTINE 10 MG CARTRIDGE (INHALER) IH PRN ×6 (01:25→22:34)
[2022-08-18] MEDS: P-EPHED 60MG/TRIPROLIDI 2.5MG TABLET PO PRN (01:28)
[2022-08-18] MEDS: LACTULOSE 20 GM/30 ML UDC (FOR ORAL USE ONLY) PO SCH ×3 (06:29→21:16)
[2022-08-18] MEDS: GABAPENTIN 300 MG CAPSULE PO SCH ×3 (06:29→21:16)
[2022-08-18] MEDS: levETIRAcetam 500 MG TABLET (FP) PO SCH ×2 (10:03→21:16)
[2022-08-18] MEDS: MOMETASONE FUROATE 220 MCG/IH INHALER IH SCH ×2 (10:03→21:45)
[2022-08-18] MEDS: BUPRENORPHINE/NALOXONE 8 MG/2 MG FILM PACKET SL SCH ×2 (10:03→21:16)
[2022-08-18] MEDS: risperiDONE 0.5 MG TABLET PO SCH ×2 (10:04→21:16)
[2022-08-18] MEDS: PRENATAL VITAMINS W/ FOLIC ACID TABLET (FP) PO SCH (10:04)
[2022-08-18] MEDS: FERROUS SO4 325 MG TABLET (FP) PO SCH (10:04)
[2022-08-18] MEDS: PANTOPRAZOLE 40 MG TABLET PO SCH (10:04)
[2022-08-18] MEDS: VITAMINS A AND D TOPICAL OINTMENT 60 GM TUBE TP SCH (10:05)
[2022-08-18] MEDS: MELATONIN 5 MG TABLETS PO SCH (21:15)
[2022-08-18] MEDS: ATORVASTATIN CA 20 MG TABLET (FP) PO SCH (21:16)
[2022-08-18] MEDS: SENNOSIDES 8.6MG TABLET (FP) PO SCH (21:16)
[2022-08-18] MEDS: THIAMINE HCL 100 MG TABLET (FP) PO SCH (21:16)
[2022-08-19] MEDS: NICOTINE 10 MG CARTRIDGE (INHALER) IH PRN ×6 (03:29→23:06)
[2022-08-19] MEDS: P-EPHED 60MG/TRIPROLIDI 2.5MG TABLET PO PRN (03:29)
[2022-08-19] MEDS: GABAPENTIN 300 MG CAPSULE PO SCH ×3 (07:02→21:43)
[2022-08-19] MEDS: LACTULOSE 20 GM/30 ML UDC (FOR ORAL USE ONLY) PO SCH ×3 (07:02→21:41)
[2022-08-19] MEDS: PANTOPRAZOLE 40 MG TABLET PO SCH (10:07)
[2022-08-19] MEDS: FERROUS SO4 325 MG TABLET (FP) PO SCH (10:08)
[2022-08-19] MEDS: MOMETASONE FUROATE 220 MCG/IH INHALER IH SCH ×2 (10:08→21:41)
[2022-08-19] MEDS: BUPRENORPHINE/NALOXONE 8 MG/2 MG FILM PACKET SL SCH ×2 (10:08→21:46)
[2022-08-19] MEDS: PRENATAL VITAMINS W/ FOLIC ACID TABLET (FP) PO SCH (10:08)
[2022-08-19] MEDS: levETIRAcetam 500 MG TABLET (FP) PO SCH ×2 (10:08→21:42)
[2022-08-19] MEDS: risperiDONE 0.5 MG TABLET PO SCH ×2 (10:09→21:42)
[2022-08-19] MEDS: VITAMINS A AND D TOPICAL OINTMENT 60 GM TUBE TP SCH (10:09)
[2022-08-19] MEDS: MELATONIN 5 MG TABLETS PO SCH (21:42)
[2022-08-19] MEDS: SENNOSIDES 8.6MG TABLET (FP) PO SCH (21:42)
[2022-08-19] MEDS: THIAMINE HCL 100 MG TABLET (FP) PO SCH (21:42)
[2022-08-19] MEDS: ATORVASTATIN CA 20 MG TABLET (FP) PO SCH (21:43)
[2022-08-20] MEDS: P-EPHED 60MG/TRIPROLIDI 2.5MG TABLET PO PRN ×2 (02:58→23:30)
[2022-08-20] MEDS: IBUPROFEN 400 MG TABLET (FP) PO PRN ×2 (02:58→23:29)
[2022-08-20] MEDS: NICOTINE 10 MG CARTRIDGE (INHALER) IH PRN ×6 (02:59→23:29)
[2022-08-20] MEDS: LACTULOSE 20 GM/30 ML UDC (FOR ORAL USE ONLY) PO SCH ×3 (06:29→21:12)
[2022-08-20] MEDS: GABAPENTIN 300 MG CAPSULE PO SCH ×3 (06:29→21:12)
[2022-08-20] MEDS: levETIRAcetam 500 MG TABLET (FP) PO SCH ×2 (09:55→21:12)
[2022-08-20] MEDS: FERROUS SO4 325 MG TABLET (FP) PO SCH (09:55)
[2022-08-20] MEDS: PANTOPRAZOLE 40 MG TABLET PO SCH (09:55)
[2022-08-20] MEDS: risperiDONE 0.5 MG TABLET PO SCH ×2 (09:55→21:12)
[2022-08-20] MEDS: PRENATAL VITAMINS W/ FOLIC ACID TABLET (FP) PO SCH (09:56)
[2022-08-20] MEDS: BUPRENORPHINE/NALOXONE 8 MG/2 MG FILM PACKET SL SCH ×2 (09:56→21:12)
[2022-08-20] MEDS: VITAMINS A AND D TOPICAL OINTMENT 60 GM TUBE TP SCH (09:57)
[2022-08-20] MEDS: MOMETASONE FUROATE 220 MCG/IH INHALER IH SCH ×2 (10:02→21:12)
[2022-08-20] MEDS: THIAMINE HCL 100 MG TABLET (FP) PO SCH (21:12)
[2022-08-20] MEDS: ATORVASTATIN CA 20 MG TABLET (FP) PO SCH (21:12)
[2022-08-20] MEDS: MELATONIN 5 MG TABLETS PO SCH (21:12)
[2022-08-20] MEDS: SENNOSIDES 8.6MG TABLET (FP) PO SCH (21:12)
[2022-08-21] MEDS: NICOTINE 10 MG CARTRIDGE (INHALER) IH PRN ×6 (03:06→23:18)
[2022-08-21] MEDS: LACTULOSE 20 GM/30 ML UDC (FOR ORAL USE ONLY) PO SCH ×3 (06:03→21:22)
[2022-08-21] MEDS: GABAPENTIN 300 MG CAPSULE PO SCH ×3 (06:03→21:22)
[2022-08-21] MEDS: MOMETASONE FUROATE 220 MCG/IH INHALER IH SCH ×2 (10:07→21:24)
[2022-08-21] MEDS: PANTOPRAZOLE 40 MG TABLET PO SCH (10:07)
[2022-08-21] MEDS: BUPRENORPHINE/NALOXONE 8 MG/2 MG FILM PACKET SL SCH ×2 (10:07→21:22)
[2022-08-21] MEDS: risperiDONE 0.5 MG TABLET PO SCH ×2 (10:07→21:22)
[2022-08-21] MEDS: levETIRAcetam 500 MG TABLET (FP) PO SCH ×2 (10:07→21:22)
[2022-08-21] MEDS: PRENATAL VITAMINS W/ FOLIC ACID TABLET (FP) PO SCH (10:07)
[2022-08-21] MEDS: FERROUS SO4 325 MG TABLET (FP) PO SCH (10:07)
[2022-08-21] MEDS: VITAMINS A AND D TOPICAL OINTMENT 60 GM TUBE TP SCH (10:08)
[2022-08-21] MEDS: P-EPHED 60MG/TRIPROLIDI 2.5MG TABLET PO PRN (19:13)
[2022-08-21] MEDS: SENNOSIDES 8.6MG TABLET (FP) PO SCH (21:22)
[2022-08-21] MEDS: THIAMINE HCL 100 MG TABLET (FP) PO SCH (21:22)
[2022-08-21] MEDS: ATORVASTATIN CA 20 MG TABLET (FP) PO SCH (21:22)
[2022-08-21] MEDS: MELATONIN 5 MG TABLETS PO SCH (21:22)
[2022-08-22] MEDS: P-EPHED 60MG/TRIPROLIDI 2.5MG TABLET PO PRN (02:02)
[2022-08-22] MEDS: NICOTINE 10 MG CARTRIDGE (INHALER) IH PRN ×5 (02:38→21:45)
[2022-08-22] MEDS: GABAPENTIN 300 MG CAPSULE PO SCH ×3 (06:59→21:44)
[2022-08-22] MEDS: LACTULOSE 20 GM/30 ML UDC (FOR ORAL USE ONLY) PO SCH ×3 (06:59→21:45)
[2022-08-22] MEDS: PRENATAL VITAMINS W/ FOLIC ACID TABLET (FP) PO SCH (09:48)
[2022-08-22] MEDS: FERROUS SO4 325 MG TABLET (FP) PO SCH (09:48)
[2022-08-22] MEDS: PANTOPRAZOLE 40 MG TABLET PO SCH (09:48)
[2022-08-22] MEDS: levETIRAcetam 500 MG TABLET (FP) PO SCH ×2 (09:48→21:44)
[2022-08-22] MEDS: BUPRENORPHINE/NALOXONE 8 MG/2 MG FILM PACKET SL SCH ×2 (09:49→21:44)
[2022-08-22] MEDS: risperiDONE 0.5 MG TABLET PO SCH ×2 (09:49→22:18)
[2022-08-22] MEDS: MOMETASONE FUROATE 220 MCG/IH INHALER IH SCH ×2 (09:49→21:46)
[2022-08-22] MEDS: VITAMINS A AND D TOPICAL OINTMENT 60 GM TUBE TP SCH (09:51)
[2022-08-22] MEDS: SODIUM CHLORIDE NASAL SPRAY 44 ML BOTTLE NS PRN (13:03)
[2022-08-22] MEDS: ATORVASTATIN CA 20 MG TABLET (FP) PO SCH (21:44)
[2022-08-22] MEDS: SENNOSIDES 8.6MG TABLET (FP) PO SCH (21:44)
[2022-08-22] MEDS: THIAMINE HCL 100 MG TABLET (FP) PO SCH (21:44)
[2022-08-22] MEDS: MELATONIN 5 MG TABLETS PO SCH (21:46)
[2022-08-23] MEDS: NICOTINE 10 MG CARTRIDGE (INHALER) IH PRN ×5 (02:25→22:38)
[2022-08-23] MEDS: SODIUM CHLORIDE NASAL SPRAY 44 ML BOTTLE NS PRN (04:16)
[2022-08-23] MEDS: LACTULOSE 20 GM/30 ML UDC (FOR ORAL USE ONLY) PO SCH ×3 (06:27→21:19)
[2022-08-23] MEDS: GABAPENTIN 300 MG CAPSULE PO SCH ×3 (06:27→21:20)
[2022-08-23] MEDS ORDERED: PSEUDOEPHEDRINE HCL 30 MG TABLET PO PRN (08:03)
[2022-08-23] MEDS: PRENATAL VITAMINS W/ FOLIC ACID TABLET (FP) PO SCH (09:47)
[2022-08-23] MEDS: PANTOPRAZOLE 40 MG TABLET PO SCH (09:48)
[2022-08-23] MEDS: levETIRAcetam 500 MG TABLET (FP) PO SCH ×2 (09:48→21:20)
[2022-08-23] MEDS: FERROUS SO4 325 MG TABLET (FP) PO SCH (09:48)
[2022-08-23] MEDS: BUPRENORPHINE/NALOXONE 8 MG/2 MG FILM PACKET SL SCH ×2 (09:50→21:21)
[2022-08-23] MEDS: VITAMINS A AND D TOPICAL OINTMENT 60 GM TUBE TP SCH (09:51)
[2022-08-23] MEDS: risperiDONE 0.5 MG TABLET PO SCH ×2 (09:51→21:20)
[2022-08-23] MEDS: MOMETASONE FUROATE 220 MCG/IH INHALER IH SCH ×2 (09:51→21:21)
[2022-08-23] MEDS: THIAMINE HCL 100 MG TABLET (FP) PO SCH (21:19)
[2022-08-23] MEDS: MELATONIN 5 MG TABLETS PO SCH (21:19)
[2022-08-23] MEDS: SENNOSIDES 8.6MG TABLET (FP) PO SCH (21:20)
[2022-08-23] MEDS: ATORVASTATIN CA 20 MG TABLET (FP) PO SCH (21:20)
[2022-08-24] MEDS: P-EPHED 60MG/TRIPROLIDI 2.5MG TABLET PO PRN (02:19)
[2022-08-24] MEDS: NICOTINE 10 MG CARTRIDGE (INHALER) IH PRN ×6 (02:19→22:29)
[2022-08-24] MEDS: LACTULOSE 20 GM/30 ML UDC (FOR ORAL USE ONLY) PO SCH ×3 (06:22→21:16)
[2022-08-24] MEDS: GABAPENTIN 300 MG CAPSULE PO SCH ×3 (06:22→21:16)
[2022-08-24] MEDS: levETIRAcetam 500 MG TABLET (FP) PO SCH ×2 (09:42→21:15)
[2022-08-24] MEDS: FERROUS SO4 325 MG TABLET (FP) PO SCH (09:42)
[2022-08-24] MEDS: PANTOPRAZOLE 40 MG TABLET PO SCH (09:42)
[2022-08-24] MEDS: PRENATAL VITAMINS W/ FOLIC ACID TABLET (FP) PO SCH (09:42)
[2022-08-24] MEDS: MOMETASONE FUROATE 220 MCG/IH INHALER IH SCH ×2 (09:42→21:16)
[2022-08-24] MEDS: risperiDONE 0.5 MG TABLET PO SCH ×2 (09:42→21:15)
[2022-08-24] MEDS: BUPRENORPHINE/NALOXONE 8 MG/2 MG FILM PACKET SL SCH ×2 (09:43→21:15)
[2022-08-24] MEDS: VITAMINS A AND D TOPICAL OINTMENT 60 GM TUBE TP SCH (09:43)
[2022-08-24] MEDS: SODIUM CHLORIDE NASAL SPRAY 44 ML BOTTLE NS PRN (21:15)
[2022-08-24] MEDS: MELATONIN 5 MG TABLETS PO SCH (21:15)
[2022-08-24] MEDS: THIAMINE HCL 100 MG TABLET (FP) PO SCH (21:16)
[2022-08-24] MEDS: SENNOSIDES 8.6MG TABLET (FP) PO SCH (21:16)
[2022-08-24] MEDS: ATORVASTATIN CA 20 MG TABLET (FP) PO SCH (21:16)
[2022-08-25] MEDS: NICOTINE 10 MG CARTRIDGE (INHALER) IH PRN ×6 (01:49→22:28)
[2022-08-25] MEDS: LACTULOSE 20 GM/30 ML UDC (FOR ORAL USE ONLY) PO SCH ×3 (06:06→21:23)
[2022-08-25] MEDS: GABAPENTIN 300 MG CAPSULE PO SCH ×3 (06:06→21:24)
[2022-08-25] MEDS: PRENATAL VITAMINS W/ FOLIC ACID TABLET (FP) PO SCH (09:43)
[2022-08-25] MEDS: FERROUS SO4 325 MG TABLET (FP) PO SCH (09:43)
[2022-08-25] MEDS: BUPRENORPHINE/NALOXONE 8 MG/2 MG FILM PACKET SL SCH ×2 (09:44→21:26)
[2022-08-25] MEDS: risperiDONE 0.5 MG TABLET PO SCH ×2 (09:44→21:24)
[2022-08-25] MEDS: levETIRAcetam 500 MG TABLET (FP) PO SCH ×2 (09:44→21:24)
[2022-08-25] MEDS: PANTOPRAZOLE 40 MG TABLET PO SCH (09:44)
[2022-08-25] MEDS: MOMETASONE FUROATE 220 MCG/IH INHALER IH SCH ×2 (09:45→21:47)
[2022-08-25] MEDS: VITAMINS A AND D TOPICAL OINTMENT 60 GM TUBE TP SCH (10:04)
[2022-08-25] MEDS: THIAMINE HCL 100 MG TABLET (FP) PO SCH (21:23)
[2022-08-25] MEDS: MELATONIN 5 MG TABLETS PO SCH (21:23)
[2022-08-25] MEDS: SENNOSIDES 8.6MG TABLET (FP) PO SCH (21:23)
[2022-08-25] MEDS: ATORVASTATIN CA 20 MG TABLET (FP) PO SCH (21:24)
[2022-08-25] MEDS: P-EPHED 60MG/TRIPROLIDI 2.5MG TABLET PO PRN (22:44)
[2022-08-26] MEDS: NICOTINE 10 MG CARTRIDGE (INHALER) IH PRN ×5 (02:39→21:13)
[2022-08-26] MEDS: GABAPENTIN 300 MG CAPSULE PO SCH ×3 (06:04→21:10)
[2022-08-26] MEDS: LACTULOSE 20 GM/30 ML UDC (FOR ORAL USE ONLY) PO SCH ×3 (06:04→21:11)
[2022-08-26] MEDS: FERROUS SO4 325 MG TABLET (FP) PO SCH (09:43)
[2022-08-26] MEDS: PRENATAL VITAMINS W/ FOLIC ACID TABLET (FP) PO SCH (09:43)
[2022-08-26] MEDS: PANTOPRAZOLE 40 MG TABLET PO SCH (09:43)
[2022-08-26] MEDS: MOMETASONE FUROATE 220 MCG/IH INHALER IH SCH ×2 (09:44→21:11)
[2022-08-26] MEDS: levETIRAcetam 500 MG TABLET (FP) PO SCH ×2 (09:44→21:10)
[2022-08-26] MEDS: risperiDONE 0.5 MG TABLET PO SCH ×2 (09:44→21:10)
[2022-08-26] MEDS: BUPRENORPHINE/NALOXONE 8 MG/2 MG FILM PACKET SL SCH ×2 (09:44→22:11)
[2022-08-26] MEDS: VITAMINS A AND D TOPICAL OINTMENT 60 GM TUBE TP SCH (10:52)
[2022-08-26] MEDS: THIAMINE HCL 100 MG TABLET (FP) PO SCH (21:10)
[2022-08-26] MEDS: ATORVASTATIN CA 20 MG TABLET (FP) PO SCH (21:10)
[2022-08-26] MEDS: SENNOSIDES 8.6MG TABLET (FP) PO SCH (21:10)
[2022-08-26] MEDS: MELATONIN 5 MG TABLETS PO SCH (21:11)
[2022-08-26] MEDS: SODIUM CHLORIDE NASAL SPRAY 44 ML BOTTLE NS PRN (23:07)
[2022-08-27] MEDS: NICOTINE 10 MG CARTRIDGE (INHALER) IH PRN ×6 (01:03→21:54)
[2022-08-27] MEDS: LACTULOSE 20 GM/30 ML UDC (FOR ORAL USE ONLY) PO SCH ×3 (06:09→21:53)
[2022-08-27] MEDS: GABAPENTIN 300 MG CAPSULE PO SCH ×3 (06:09→21:55)
[2022-08-27] MEDS: PRENATAL VITAMINS W/ FOLIC ACID TABLET (FP) PO SCH (09:44)
[2022-08-27] MEDS: PANTOPRAZOLE 40 MG TABLET PO SCH (09:44)
[2022-08-27] MEDS: levETIRAcetam 500 MG TABLET (FP) PO SCH ×2 (09:44→21:50)
[2022-08-27] MEDS: BUPRENORPHINE/NALOXONE 8 MG/2 MG FILM PACKET SL SCH ×2 (09:44→21:53)
[2022-08-27] MEDS: FERROUS SO4 325 MG TABLET (FP) PO SCH (09:44)
[2022-08-27] MEDS: MOMETASONE FUROATE 220 MCG/IH INHALER IH SCH ×2 (09:45→21:55)
[2022-08-27] MEDS: risperiDONE 0.5 MG TABLET PO SCH ×2 (09:45→21:55)
[2022-08-27] MEDS: VITAMINS A AND D TOPICAL OINTMENT 60 GM TUBE TP SCH (09:46)
[2022-08-27] MEDS: IBUPROFEN 400 MG TABLET (FP) PO PRN (14:29)
[2022-08-27] MEDS: THIAMINE HCL 100 MG TABLET (FP) PO SCH (21:50)
[2022-08-27] MEDS: ATORVASTATIN CA 20 MG TABLET (FP) PO SCH (21:50)
[2022-08-27] MEDS: SENNOSIDES 8.6MG TABLET (FP) PO SCH (21:50)
[2022-08-27] MEDS: MELATONIN 5 MG TABLETS PO SCH (22:10)
[2022-08-27] MEDS: SODIUM CHLORIDE NASAL SPRAY 44 ML BOTTLE NS PRN (23:37)
[2022-08-28] MEDS: NICOTINE 10 MG CARTRIDGE (INHALER) IH PRN ×6 (02:29→22:03)
[2022-08-28] MEDS: QUEtiapine FUMARATE 25 MG TABLET PO PRN ×2 (02:31→21:23)
[2022-08-28] MEDS: GABAPENTIN 300 MG CAPSULE PO SCH ×3 (06:03→21:23)
[2022-08-28] MEDS: LACTULOSE 20 GM/30 ML UDC (FOR ORAL USE ONLY) PO SCH ×3 (06:03→21:22)
[2022-08-28] MEDS: levETIRAcetam 500 MG TABLET (FP) PO SCH ×2 (09:44→21:23)
[2022-08-28] MEDS: PRENATAL VITAMINS W/ FOLIC ACID TABLET (FP) PO SCH (09:44)
[2022-08-28] MEDS: FERROUS SO4 325 MG TABLET (FP) PO SCH (09:44)
[2022-08-28] MEDS: BUPRENORPHINE/NALOXONE 8 MG/2 MG FILM PACKET SL SCH ×2 (09:44→21:22)
[2022-08-28] MEDS: PANTOPRAZOLE 40 MG TABLET PO SCH (09:44)
[2022-08-28] MEDS: risperiDONE 0.5 MG TABLET PO SCH ×2 (09:45→21:23)
[2022-08-28] MEDS: MOMETASONE FUROATE 220 MCG/IH INHALER IH SCH ×2 (09:45→21:23)
[2022-08-28] MEDS: VITAMINS A AND D TOPICAL OINTMENT 60 GM TUBE TP SCH (09:45)
[2022-08-28] MEDS: SODIUM CHLORIDE NASAL SPRAY 44 ML BOTTLE NS PRN (21:22)
[2022-08-28] MEDS: ATORVASTATIN CA 20 MG TABLET (FP) PO SCH (21:23)
[2022-08-28] MEDS: THIAMINE HCL 100 MG TABLET (FP) PO SCH (21:23)
[2022-08-28] MEDS: MELATONIN 5 MG TABLETS PO SCH (21:23)
[2022-08-28] MEDS: SENNOSIDES 8.6MG TABLET (FP) PO SCH (21:23)
[2022-08-29] MEDS: LACTULOSE 20 GM/30 ML UDC (FOR ORAL USE ONLY) PO SCH ×3 (06:11→21:47)
[2022-08-29] MEDS: GABAPENTIN 300 MG CAPSULE PO SCH ×3 (06:11→21:47)
[2022-08-29] MEDS: NICOTINE 10 MG CARTRIDGE (INHALER) IH PRN ×5 (06:12→21:50)
[2022-08-29] MEDS: risperiDONE 0.5 MG TABLET PO SCH ×2 (10:09→21:49)
[2022-08-29] MEDS: FERROUS SO4 325 MG TABLET (FP) PO SCH (10:09)
[2022-08-29] MEDS: levETIRAcetam 500 MG TABLET (FP) PO SCH ×2 (10:09→21:47)
[2022-08-29] MEDS: PRENATAL VITAMINS W/ FOLIC ACID TABLET (FP) PO SCH (10:09)
[2022-08-29] MEDS: PANTOPRAZOLE 40 MG TABLET PO SCH (10:09)
[2022-08-29] MEDS: BUPRENORPHINE/NALOXONE 8 MG/2 MG FILM PACKET SL SCH ×2 (10:10→21:50)
[2022-08-29] MEDS: MOMETASONE FUROATE 220 MCG/IH INHALER IH SCH ×2 (10:10→21:49)
[2022-08-29] MEDS: VITAMINS A AND D TOPICAL OINTMENT 60 GM TUBE TP SCH (10:11)
[2022-08-29] MEDS: ATORVASTATIN CA 20 MG TABLET (FP) PO SCH (21:47)
[2022-08-29] MEDS: QUEtiapine FUMARATE 25 MG TABLET PO PRN (21:47)
[2022-08-29] MEDS: THIAMINE HCL 100 MG TABLET (FP) PO SCH (21:47)
[2022-08-29] MEDS: SENNOSIDES 8.6MG TABLET (FP) PO SCH (21:47)
[2022-08-29] MEDS: SODIUM CHLORIDE NASAL SPRAY 44 ML BOTTLE NS PRN (21:48)
[2022-08-29] MEDS: MELATONIN 5 MG TABLETS PO SCH (21:48)
[2022-08-30] MEDS: SODIUM CHLORIDE NASAL SPRAY 44 ML BOTTLE NS PRN ×2 (02:05→23:26)
[2022-08-30] MEDS: NICOTINE 10 MG CARTRIDGE (INHALER) IH PRN ×6 (02:05→23:09)
[2022-08-30] MEDS: LACTULOSE 20 GM/30 ML UDC (FOR ORAL USE ONLY) PO SCH ×3 (06:05→21:13)
[2022-08-30] MEDS: GABAPENTIN 300 MG CAPSULE PO SCH ×3 (06:05→21:13)
[2022-08-30] MEDS: levETIRAcetam 500 MG TABLET (FP) PO SCH ×2 (09:56→21:13)
[2022-08-30] MEDS: BUPRENORPHINE/NALOXONE 8 MG/2 MG FILM PACKET SL SCH ×2 (09:57→21:16)
[2022-08-30] MEDS: FERROUS SO4 325 MG TABLET (FP) PO SCH (09:57)
[2022-08-30] MEDS: PANTOPRAZOLE 40 MG TABLET PO SCH (09:57)
[2022-08-30] MEDS: PRENATAL VITAMINS W/ FOLIC ACID TABLET (FP) PO SCH (09:57)
[2022-08-30] MEDS: MOMETASONE FUROATE 220 MCG/IH INHALER IH SCH ×2 (09:58→21:32)
[2022-08-30] MEDS: risperiDONE 0.5 MG TABLET PO SCH ×2 (09:58→21:13)
[2022-08-30] MEDS: VITAMINS A AND D TOPICAL OINTMENT 60 GM TUBE TP SCH (10:05)
[2022-08-30] MEDS: ATORVASTATIN CA 20 MG TABLET (FP) PO SCH (21:13)
[2022-08-30] MEDS: MELATONIN 5 MG TABLETS PO SCH (21:13)
[2022-08-30] MEDS: SENNOSIDES 8.6MG TABLET (FP) PO SCH (21:14)
[2022-08-30] MEDS: THIAMINE HCL 100 MG TABLET (FP) PO SCH (21:14)
[2022-08-31] MEDS: P-EPHED 60MG/TRIPROLIDI 2.5MG TABLET PO PRN (01:20)
[2022-08-31] MEDS: NICOTINE 10 MG CARTRIDGE (INHALER) IH PRN ×5 (03:17→22:15)
[2022-08-31] MEDS: GABAPENTIN 300 MG CAPSULE PO SCH ×3 (06:10→21:20)
[2022-08-31] MEDS: LACTULOSE 20 GM/30 ML UDC (FOR ORAL USE ONLY) PO SCH ×3 (06:10→21:19)
[2022-08-31 07:03] VITALS: RESP 16
[2022-08-31] MEDS: PRENATAL VITAMINS W/ FOLIC ACID TABLET (FP) PO SCH (09:48)
[2022-08-31] MEDS: PANTOPRAZOLE 40 MG TABLET PO SCH (09:49)
[2022-08-31] MEDS: levETIRAcetam 500 MG TABLET (FP) PO SCH ×2 (09:49→21:20)
[2022-08-31] MEDS: FERROUS SO4 325 MG TABLET (FP) PO SCH (09:49)
[2022-08-31] MEDS: BUPRENORPHINE/NALOXONE 8 MG/2 MG FILM PACKET SL SCH ×2 (09:49→21:19)
[2022-08-31] MEDS: MOMETASONE FUROATE 220 MCG/IH INHALER IH SCH ×2 (09:49→21:20)
[2022-08-31] MEDS: risperiDONE 0.5 MG TABLET PO SCH ×2 (09:50→21:21)
[2022-08-31] MEDS: VITAMINS A AND D TOPICAL OINTMENT 60 GM TUBE TP SCH (09:50)
[2022-08-31] MEDS ORDERED: PSEUDOEPHEDRINE HCL 30 MG TABLET PO PRN (11:38)
[2022-08-31] MEDS: ATORVASTATIN CA 20 MG TABLET (FP) PO SCH (21:20)
[2022-08-31] MEDS: SENNOSIDES 8.6MG TABLET (FP) PO SCH (21:20)
[2022-08-31] MEDS: THIAMINE HCL 100 MG TABLET (FP) PO SCH (21:20)
[2022-08-31] MEDS: MELATONIN 5 MG TABLETS PO SCH (21:20)
[2022-09-01] MEDS: NICOTINE 10 MG CARTRIDGE (INHALER) IH PRN ×6 (02:18→23:13)
[2022-09-01] MEDS: LACTULOSE 20 GM/30 ML UDC (FOR ORAL USE ONLY) PO SCH ×3 (06:09→21:14)
[2022-09-01] MEDS: GABAPENTIN 300 MG CAPSULE PO SCH ×3 (06:09→21:15)
[2022-09-01] MEDS: PANTOPRAZOLE 40 MG TABLET PO SCH (09:43)
[2022-09-01] MEDS: PRENATAL VITAMINS W/ FOLIC ACID TABLET (FP) PO SCH (09:43)
[2022-09-01] MEDS: BUPRENORPHINE/NALOXONE 8 MG/2 MG FILM PACKET SL SCH ×2 (09:43→21:14)
[2022-09-01] MEDS: FERROUS SO4 325 MG TABLET (FP) PO SCH (09:43)
[2022-09-01] MEDS: levETIRAcetam 500 MG TABLET (FP) PO SCH ×2 (09:43→21:15)
[2022-09-01] MEDS: MOMETASONE FUROATE 220 MCG/IH INHALER IH SCH ×2 (09:44→21:14)
[2022-09-01] MEDS: risperiDONE 0.5 MG TABLET PO SCH ×2 (09:44→22:33)
[2022-09-01] MEDS: VITAMINS A AND D TOPICAL OINTMENT 60 GM TUBE TP SCH (09:44)
[2022-09-01] MEDS: QUEtiapine FUMARATE 25 MG TABLET PO PRN (21:15)
[2022-09-01] MEDS: ATORVASTATIN CA 20 MG TABLET (FP) PO SCH (21:15)
[2022-09-01] MEDS: THIAMINE HCL 100 MG TABLET (FP) PO SCH (21:15)
[2022-09-01] MEDS: SENNOSIDES 8.6MG TABLET (FP) PO SCH (21:15)
[2022-09-01] MEDS: MELATONIN 5 MG TABLETS PO SCH (22:33)
[2022-09-02] MEDS: NICOTINE 10 MG CARTRIDGE (INHALER) IH PRN ×3 (02:00→10:33)
[2022-09-02] MEDS: GABAPENTIN 300 MG CAPSULE PO SCH (06:10)
[2022-09-02] MEDS: LACTULOSE 20 GM/30 ML UDC (FOR ORAL USE ONLY) PO SCH (06:10)
[2022-09-02 06:58] VITALS: BP 119/84; PULSE 75; TEMP 97.7
[2022-09-02] MEDS: MOMETASONE FUROATE 220 MCG/IH INHALER IH SCH (09:23)
[2022-09-02] MEDS: risperiDONE 0.5 MG TABLET PO SCH (09:24)
[2022-09-02] MEDS: FERROUS SO4 325 MG TABLET (FP) PO SCH (09:24)
[2022-09-02] MEDS: PANTOPRAZOLE 40 MG TABLET PO SCH (09:24)
[2022-09-02] MEDS: levETIRAcetam 500 MG TABLET (FP) PO SCH (09:24)
[2022-09-02] MEDS: PRENATAL VITAMINS W/ FOLIC ACID TABLET (FP) PO SCH (09:25)
[2022-09-02] MEDS: VITAMINS A AND D TOPICAL OINTMENT 60 GM TUBE TP SCH (09:26)
[2022-09-02] MEDS: BUPRENORPHINE/NALOXONE 8 MG/2 MG FILM PACKET SL SCH (09:26)
== END 2022-09-02 10:35 | disposition home or self-care (01) | DRG 772 ==
LOC: YASAS 09:32 → Y5N 14:33
PROVIDERS: ADMIT Allergy & Immunology; ATTEND Allergy & Immunology
PROC: HZ42ZZZ Group Counseling for Substance Abuse Treatment, Cognitive-Behavioral (ICD-10-PCS; principal; 2022-08-06)
DX: F10.20 Alcohol dependence, uncomplicated (principal); F11.20 Opioid dependence, uncomplicated; F14.20 Cocaine dependence, uncomplicated; F17.210 Nicotine dependence, cigarettes, uncomplicated; F19.282 Other psychoactive substance dependence with psychoactive substance-induced sleep disorder; F19.24 Other psychoactive substance dependence with psychoactive substance-induced mood disorder; F25.9 Schizoaffective disorder, unspecified; R56.1 Post traumatic seizures; L97.519 Non-pressure chronic ulcer of other part of right foot with unspecified severity; I10 Essential (primary) hypertension; J45.909 Unspecified asthma, uncomplicated; K21.9 Gastro-esophageal reflux disease without esophagitis; Z89.421 Acquired absence of other right toe(s); Z86.19 Personal history of other infectious and parasitic diseases; Z59.00 Homelessness unspecified
CPT/HCPCS: 36415; 80053; 81003; 82140; 85027; 86593; 86780; 86803; 87811; 93005; 93010; C9803-CS; U0003; U0005